=== PATIENT | female | born 1985 | race Caucasian/White ===

== ENCOUNTER 2020-07-29 21:43 | Emergency (ER) | payer OTHER ==
[~2020-07-29] VITALS: Ht 167.6 cm; Wt 89.5 kg
[2020-07-29 21:49] VITALS: TEMP 98.3
[2020-07-30] MEDS ORDERED: AMOXICILLIN 8751 TAB PO (00:30)
[2020-07-30 00:47] VITALS: BP 105/67; PULSE 64
== END 2020-07-30 00:51 | disposition home or self-care (01) ==
LOC: COL.ER 21:43
DX: S61.230A Puncture wound without foreign body of right index finger without damage to nail, initial encounter (principal); I10 Essential (primary) hypertension; W53.11XA Bitten by rat, initial encounter

== ENCOUNTER 2021-01-31 19:18 | Emergency (ER) | payer OTHER ==
[~2021-01-31] VITALS: Ht 167.6 cm; Wt 87.3 kg
[~2021-01-31 19:18] MED LIST: AMOXICILLIN 8751 TAB PO
[2021-01-31 19:26] VITALS: TEMP 97.8
[2021-01-31] MEDS ORDERED: AMOXICILLIN 8751 TAB PO (19:42)
[2021-01-31] MEDS ORDERED: PRINIVIL10 MG PO (19:47)
[2021-01-31] MEDS ORDERED: ZOLOFT 100MG100 MG PO (19:47)
[2021-01-31] MEDS ORDERED: ONE-A-DAY ESSE1 EACH PO (19:48)
[2021-01-31] MEDS ORDERED: WELLBUTRIN 100100 MG PO (19:48)
[2021-01-31] MEDS ORDERED: NORCO 325 MG-51 TAB PO (20:01)
[2021-01-31 20:05] VITALS: BP 144/86; PULSE 83
== END 2021-01-31 20:05 | disposition home or self-care (01) ==
LOC: COL.ER 19:18
DX: S51.832A Puncture wound without foreign body of left forearm, initial encounter (principal); S30.811A Abrasion of abdominal wall, initial encounter; S00.31XA Abrasion of nose, initial encounter; I10 Essential (primary) hypertension; F32.A Depression, unspecified; Z79.899 Other long term (current) drug therapy; W54.0XXA Bitten by dog, initial encounter